=== PATIENT | female | born 1950 | race Caucasian/White ===

== ENCOUNTER 2021-05-09 09:22 | Day surgery (SDC) | payer OTHER ==
[~2021-05-09] VITALS: Ht 160 cm; Wt 61.0 kg
[~2021-05-09 09:22] MED LIST: Excedrin Extra1 EACH; Multiple Vitam1 EAC1
[2021-05-09] MEDS ORDERED: Vitamin C100 M1 (09:30)
[2021-05-09] MEDS ORDERED: ERGO400 (09:30)
[2021-05-09] MEDS ORDERED: SERT20L (09:31)
[2021-05-09] MEDS ORDERED: EUTHYROX50 MCG (09:31)
== END 2021-05-09 10:47 | disposition home or self-care (01) ==
LOC: ORSCSDS 09:22
PROVIDERS: Surgery
PROC: 0DJD8ZZ Inspection of Lower Intestinal Tract, Via Natural or Artificial Opening Endoscopic (ICD-10-PCS; principal; 2021-05-09 10:15)
DX: Z12.11 Encounter for screening for malignant neoplasm of colon (principal); Z86.010 Personal history of colon polyps; F41.8 Other specified anxiety disorders; Z87.891 Personal history of nicotine dependence; Z79.899 Other long term (current) drug therapy; Z79.82 Long term (current) use of aspirin
CPT/HCPCS: J2704; J7120